=== PATIENT | male | born 1980 | race American Indian/Alaskan Native ===

== ENCOUNTER 2018-12-11 10:09 | Inpatient (IN) | payer OTHER ==
[2018-12-11] MEDS ORDERED: CATAPRES ONE (10:24)
[2018-12-11] MEDS ORDERED: CATAPRES PO ONE (10:24)
--- NOTE | 2018-12-11 13:16 | Emergency Department Report ---
HPI - General Chief Complaint: Upper Respiratory Infection Time Seen by Provider: 12/11/18 12:48 - HPI HPI: 37-year-old -[place] male presents to the emergency department with the complaint of a mixed dry and productive cough, chest congestion and some shortness of breath that has been going on for the past few weeks. He says that the symptoms worsen at night and when he is laying flat on his side. He then has to sit up in bed or in a chair. He tried one of his friends albuterol inhalers for some temporary relief. He is a tobacco smoker but says he is down to about a few cigarettes per week. He has a history of hypertension and admits to noncompliance with his blood pressure medication. He denies any fever, chest pain, nausea, vomiting or diaphoresis. No recent travel or sick contacts at home. He does not have a primary care physician. ED Past Medical Hx - Past Medical History Previous Medical History?: Yes Hx Hypertension: Yes - Surgical History Past Surgical History?: No - Social History Smoking Status: Current Some Day Smoker Substance Use Type: None - Medications Home Medications: Home Medications Medication Instructions Recorded Confirmed Last Taken Type No Known Home Medications [No 12/11/18 12/11/18 Unknown History Reported Home Medications] ED Review of Systems ROS: Stated complaint: SOB Other details as noted in HPI Comment: All other systems reviewed and negative Constitutional: denies: fever Eyes: denies: eye pain, vision change ENT: denies: ear pain, throat pain Respiratory: cough, shortness of breath Cardiovascular: denies: palpitations, edema Gastrointestinal: denies: abdominal pain, vomiting Genitourinary: denies: dysuria, discharge Musculoskeletal: denies: back pain, arthralgia Skin: denies: rash, lesions Neurological: denies: headache, weakness Physical Exam - Physical Exam Vital Signs: Vital Signs 12/11/18 12/11/18 12/11/18 10:19 10:24 12:13 Temperature 97.9 F Pulse Rate 102 H 102 H 95 H Respiratory 20 16 Rate Blood Pressure 215/155 214/155 Blood Pressure 160/120 [Right] O2 Sat by Pulse 98 98 Oximetry Physical Exam: GENERAL: The patient is well-developed well-nourished. HEENT: Normocephalic. Atraumatic. Patient has moist mucous membranes. EYES: Extraocular motions are intact. Pupils are equal and reactive to light bilaterally. NECK: Supple. Trachea is midline. CHEST/LUNGS: Clear to auscultation. There is some mild tachypnea but no excessive muscle use. There is no respiratory distress noted. HEART/CARDIOVASCULAR: Regular. There is mild tachycardia. There is no obvious murmur. ABDOMEN: Abdomen is soft, nontender. Patient has normal bowel sounds. There is no abdominal distention. SKIN: Skin is warm and dry. NEURO: The patient is awake, alert, and oriented. The patient is cooperative. The patient has no focal neurologic deficits. The patient has normal speech. MUSCULOSKELETAL: There is no tenderness or deformity. There is no limitation range of motion. There is no evidence of acute injury. ED Course Vital Signs 12/11/18 12/11/18 12/11/18 10:19 10:24 12:13 Temperature 97.9 F Pulse Rate 102 H 102 H 95 H Respiratory 20 16 Rate Blood Pressure 215/155 214/155 Blood Pressure 160/120 [Right] O2 Sat by Pulse 98 98 Oximetry ED Medical Decision Making - Lab Data Result diagrams: 12/11/18 13:37 12/11/18 13:37 - EKG Data -: EKG Interpreted by Me EKG shows normal: sinus rhythm, axis, intervals (slightly prolonged QTC), QRS complexes (LVH), ST-T waves (T-wave inversions to the lateral leads V5 and V6 with some slight ST depression but no reciprocal elevation.) Rate: tachycardia (102 bpm) - EKG Data When compared to previous EKG there are: previous EKG unavailable Interpretation: other (sinus tachycardia at 102 bpm, LVH, T-wave inversion and slight ST depression to lateral leads V5 and V6) - Radiology Data Radiology results: report reviewed, image reviewed interpreted by me: Chest x-ray shows some cardiomegaly but no obvious pleural effusions, pneumonia, focal consolidations. VENTILATION/PERFUSION LUNG SCAN: 12/11/18 15:11 CLINICAL: Shortness of breath and elevated d-dimer. TECHNIQUE: 15.0 mCi of xenon-133 was administered by aerosol and 5.0 mCi of technetium 99m MAA was administered intravenously. Comparison is made to a same day chest x-ray. FINDINGS: Inhalation of Xenon gas demonstrates a normal distribution of the activity throughout both lungs. The wash out phases show no significant retention of activity. After injection of Technetium 99m macroaggregated albumin gamma camera imaging of the lungs in multiple projections demonstrates normal pulmonary contours with a relatively homogeneous distribution of activity. No suspicious focal areas of perfusion deficiency are identified. IMPRESSION: Negative study. Low probability of pulmonary embolus. Transcribed By: REF Dictated By: LUISA CEVALLOS MD Electronically Authenticated By: LUISA CEVALLOS MD Signed Date/Time: 12/11/18 9621 - Medical Decision Making Patient presents to the emergency department with a complaint of shortness of breath, orthopnea. He also presents with very elevated blood pressure with medication noncompliance. EKG did not show any signs of ST elevation [place] but there are some ST depressions and T-wave inversions to the lateral leads of V5 and V6 with some LVH. Chest x-ray shows cardiomegaly but no pleural effusions, pneumothorax, pneumonia, focal consolidations, or any other acute process. Patient's labs show a creatinine of 2.2 with GFR 40, BNP of almost 19,000, slightly elevated and equivocal troponin, and elevated and equivocal d-dimer. VQ scan was negative for pulmonary embolism. Patient was given blood pressure medications and a dose of Lasix. He will be admitted to the hospital for his hypertensive issues, acute kidney failure and what appears to be acute CHF. Patient was accepted for admission by the hospitalist, Dr. Cornejo. - Differential Diagnosis CHF, Pneumonia, Asthma, PE, [place] Critical Care Time: No Critical care attestation.: If time is entered above; I have spent that time in minutes in the direct care of this critically ill patient, excluding procedure time. ED Disposition Clinical Impression: Accelerated hypertension Dyspnea Qualifiers: Dyspnea type: shortness of breath Qualified Code(s): R06.02 - Shortness of breath Acute CHF Qualifiers: Heart failure type: unspecified Qualified Code(s): I50.9 - Heart failure, unspecified Acute renal failure Qualifiers: Acute renal failure type: unspecified Qualified Code(s): N17.9 - Acute kidney failure, unspecified Disposition: OP ADMIT IP TO THIS HOSP Is pt being admited?: Yes Condition: Fair Instructions: Hypertension (ED) Referrals: LYN LUCERO MD [Primary Care Provider] - 3-5 Days Time of Disposition: 15:50
--- NOTE | 2018-12-11 13:27 | XRay Report ---
ROUTINE CHEST, TWO VIEWS: HISTORY: chest pain. No comparison. Heart size appears borderline to mildly increased. Normal pulmonary vascularity. The lungs are clear. Normal bony thorax. IMPRESSION: Borderline heart size. Lungs clear.
[2018-12-11 14:08] LABS: Basophils % (Auto) 0.8 % (0.0-1.8); Eosinophils # (Auto) 0.1 K/mm3 (0.0-0.4); Eosinophils % (Auto) 1.1 % (0.0-4.3); Hematocrit 38.4 % (35.5-45.6); Hemoglobin 12.9 gm/dl (11.8-15.2); Lymphocytes # (Auto) 1.3 K/mm3 (1.2-5.4); Lymphocytes % (Auto) 26.2 % (13.4-35.0); Mean Corpuscular HGB Conc 34 % (32-34); Mean Corpuscular Volume 92 fl (84-94); Monocytes # (Auto) 0.3 K/mm3 (0.0-0.8); Monocytes % (Auto) 5.8 % (0.0-7.3); Platelet Count 179 K/mm3 (140-440); Red Cell Distribution Width 14.5 % (13.2-15.2)
[2018-12-11 14:35] LABS: Calcium 8.4 mg/dL (8.4-10.2)
[2018-12-11] MEDS ORDERED: DUONEB *Not for PRN Use IH ONE (14:39)
[2018-12-11] MEDS ORDERED: LASIX IV ONE (14:39)
[2018-12-11] MEDS ORDERED: APRESOLINE IV ONE (14:39)
--- NOTE | 2018-12-11 15:40 | Nuclear Medicine Report ---
VENTILATION/PERFUSION LUNG SCAN: 12/11/18 15:11 CLINICAL: Shortness of breath and elevated d-dimer. TECHNIQUE: 15.0 mCi of xenon-133 was administered by aerosol and 5.0 mCi of technetium 99m MAA was administered intravenously. Comparison is made to a same day chest x-ray. FINDINGS: Inhalation of Xenon gas demonstrates a normal distribution of the activity throughout both lungs. The wash out phases show no significant retention of activity. After injection of Technetium 99m macroaggregated albumin gamma camera imaging of the lungs in multiple projections demonstrates normal pulmonary contours with a relatively homogeneous distribution of activity. No suspicious focal areas of perfusion deficiency are identified. IMPRESSION: Negative study. Low probability of pulmonary embolus.
[2018-12-12] MEDS ORDERED: TYLENOL PO PRN (01:24)
[2018-12-12] MEDS ORDERED: ZOFRAN IV PRN (01:24)
[2018-12-12] MEDS ORDERED: PERCOCET 5/325 PO PRN (01:24)
[2018-12-12] MEDS ORDERED: SODIUM CHLORIDE FLUSH SYRINGE 10 ML IV PRN (01:24)
[2018-12-12] MEDS ORDERED: DILAUDID IV PRN (01:24)
[2018-12-12] MEDS: NITRO-BID 2% TP SCH ×5 (01:35→17:22)
[2018-12-12] MEDS: COZAAR PO SCH ×2 (01:39→10:46)
[2018-12-12] MEDS: K-DUR PO SCH ×3 (01:39→22:02)
[2018-12-12] MEDS: COREG PO SCH ×3 (01:40→22:02)
[2018-12-12] MEDS: NORVASC PO SCH ×2 (01:40→10:39)
--- NOTE | 2018-12-12 01:48 | Event Note ---
Date: 12/11/18 See dictated H/p in reports New onset CHF Hypertensive emergency OBIE/CKD
[2018-12-12] MEDS: HEPARIN SUB-Q SCH ×3 (02:19→22:03)
--- NOTE | 2018-12-12 02:24 | History and Physical Report ---
CHIEF COMPLAINT: Increasing shortness of breath for 1 month. HISTORY OF PRESENT ILLNESS: This 37-year-old male with history of hypertension, noncompliant with medications and not taking medications for 1 year, comes in for intermittent shortness of breath for the last 1 month, more so for 1 week. Shortness of breath on minimal exertion. Also orthopnea present for the last 2-3 days. No chest pain present. The patient has shortness of breath on walking like 100-150 meters. This is new onset over the last 1 month. No diaphoresis. No palpitations. No recent travel. PAST MEDICAL HISTORY: Significant for hypertension, but noncompliant with medications. PAST SURGICAL HISTORY: None. SOCIAL HISTORY: Smokes over a pack a day. FAMILY HISTORY: Hypertension. REVIEW OF SYSTEMS: Significant for shortness of breath on minimal exertion and orthopnea present, going on for 1 month. Otherwise, review of systems is negative. A 14-point review of systems is done. PHYSICAL EXAMINATION: GENERAL: Young male, cooperative during the examination. VITAL SIGNS: Blood pressure was initially 173/132, temperature is 97.6, pulse is 95, respirations are 15. HEENT: Unremarkable. NECK: Supple, no lymphadenopathy, no thyromegaly. LUNGS: Scattered rales bilaterally. CARDIOVASCULAR: S1, S2 heard. No gallop, no murmur, no rub. Apical impulse in left fifth intercostal space and midclavicular line. ABDOMEN: Soft and benign. No hepatosplenomegaly. No guarding, no rigidity. Hernial orifices are normal. EXTREMITIES: Good pedal pulses. No pedal edema. CENTRAL NERVOUS SYSTEM: Alert and oriented x 4, nonfocal exam. LABORATORY DATA: CBC is normal. D-dimer is 624.94, BUN and creatinine is 25 and 2.2. BNP is 18,340. Calcium is 8.4, glucose is 128. EKG shows LVH by voltage criteria. Heart rate of 102, sinus tachycardia. Deep S waves in V1, V2, V3, and tall R waves in V4, V5, V6. Repolarization abnormalities present. Chest x-ray shows cardiomegaly, but no pulmonary vascular congestion. ASSESSMENT AND PLAN: 1. New onset congestive heart failure exacerbation. The patient to get echocardiogram for ejection fraction and valve funstion. IV Lasix initiated. Also, antihypertensives initiated. 2. Hypertensive emergency. The patient initiated on losartan 100 mg once a day and Coreg 6.25 b.i.d. and amlodipine 5 mg daily. Also, hydralazine 10 mg q.3 p.r.n. 3. Acute kidney injury. The patient possibly has chronic kidney disease with mild acute kidney injury. The patient is on Lasix. Nephrology consult to be requested if necessary. At this point, nephrology consult was not ordered. 4. Deep venous thrombosis prophylaxis, heparin 5000 q.12. 5. Gastrointestinal prophylaxis. JOB# [id number] SCOTT/MAIDA TELLEZ
[2018-12-12] MEDS: LASIX IV SCH ×2 (05:36→17:21)
[2018-12-12 06:32] LABS: Albumin 3.1 g/dL (3.9-5); Calcium 8.3 mg/dL (8.4-10.2)
[2018-12-12 08:23] LABS: Chol/HDL Ratio 2.62 %
[2018-12-12] MEDS: KCL 10MEQ/100ML 10 MEQ/100 ML BAG IV SCH ×3 (10:39→14:24)
[2018-12-12] MEDS: SODIUM CHLORIDE FLUSH SYRINGE 10 ML IV SCH ×3 (10:42→22:05)
--- NOTE | 2018-12-12 10:52 | Consultation ---
History of Present Illness - Reason for Consult Consult date: 12/12/18 acute renal failure, hypokalemia Requesting physician: YENI LACY - History of Present Illness This is a 37 yo AAM with past medical history of hypertension diagnosed more than 5-6 years ago, who presented to [facility] ER with complaints of SOB, LANTIGUA, orthopnea progressively worsening over the last 1 week, to the degree that pt was not able to walk more than 100meter without stopping to catch air. pt states that he was not compliant with medical follow up and with BP meds for the last year. in ER patient was found to be in hypertensive emergency with BP as high as 215/150s mmHg, labs showed elevated D-dimer >600 and proBNP level > 03953, CXR showed mild cardiomegaly but no acute infiltrates, V/Q scan showed low probability for PE. BUN/Cr was elevated at 25/2.2mg/dl and hypokalemia was noted with K as low as 2.9. renal consult is requested for management of OBIE/electrolyte imbalance. Pt's BP improved with IV hydralazine, IV lasix, and nitro ointment. pt denies recent NSAIDs use or IV contrast exposure. pt is not aware of any underlying renal disease. Past History Past Medical History: hypertension Past Surgical History: No surgical history Social history: smoking. denies: alcohol abuse, prescription drug abuse, IV drug use Family history: hypertension (kidney failure - mother () ) Medications and Allergies Allergies Allergy/AdvReac Type Severity Reaction Status Date / Time No Known Allergies Allergy Verified 12/11/18 10:55 Home Medications Medication Instructions Recorded Confirmed Last Taken Type No Known Home Medications [No 12/11/18 12/11/18 Unknown History Reported Home Medications] Active Meds: Active Medications Acetaminophen (Tylenol) 650 mg PO Q4H PRN PRN Reason: Pain MILD(1-3)/Fever >100.5/TUCKER Amlodipine Besylate (Norvasc) 5 mg PO QDAY@0800 [facility] Last Admin: 12/12/18 10:39 Dose: 5 mg Documented by: Carvedilol (Coreg) 6.25 mg PO BID [facility] Last Admin: 12/12/18 10:40 Dose: 6.25 mg Documented by: Furosemide (Lasix) 40 mg IV 0600,1800 [facility] Last Admin: 12/12/18 05:36 Dose: 40 mg Documented by: Heparin Sodium (Porcine) (Heparin) 5,000 unit SUB-Q Q12HR [facility] Last Admin: 12/12/18 02:19 Dose: Not Given Documented by: Hydromorphone HCl (Dilaudid) 0.5 mg IV Q3H PRN PRN Reason: Pain , Severe (7-10) Potassium Chloride (Kcl 10meq/100ml) 10 meq in 100 mls @ 100 mls/hr IV Q1H [facility] Stop: 12/12/18 12:59 Last Admin: 12/12/18 10:39 Dose: 100 mls/hr Documented by: Losartan Potassium (Cozaar) 100 mg PO QDAY [facility] Last Admin: 12/12/18 10:46 Dose: 100 mg Documented by: Nitroglycerin (Nitro-Bid 2%) 0.5 inch TP QIDNTG [facility]; Protocol Last Admin: 12/12/18 10:40 Dose: 0.5 inch Documented by: Ondansetron HCl (Zofran) 4 mg IV Q8H PRN PRN Reason: Nausea And Vomiting Oxycodone/Acetaminophen (Percocet 5/325) 1 tab PO Q6H PRN PRN Reason: Pain, Moderate (4-6) Potassium Chloride (K-Dur) 20 meq PO Q12HR [facility] Last Admin: 12/12/18 10:47 Dose: 20 meq Documented by: Sodium Chloride (Sodium Chloride Flush Syringe 10 Ml) 10 ml IV BID [facility] Last Admin: 12/12/18 10:42 Dose: 10 ml Documented by: Sodium Chloride (Sodium Chloride Flush Syringe 10 Ml) 10 ml IV PRN PRN PRN Reason: LINE FLUSH Review of Systems All systems: negative Constitutional: weakness, malaise Cardiovascular: chest pain, orthopnea, shortness of breath, dyspnea on exertion, paroxysmal nocturnal dyspnea Exam - Vital Signs Vital signs: Vital Signs Temp Pulse Resp BP Pulse Ox 97.9 F 102 H 20 215/155 98 12/11/18 10:19 12/11/18 10:19 12/11/18 10:19 12/11/18 10:19 12/11/18 10:19 - General Appearance General appearance: well-developed, well-nourished, appears stated age EENT: ATNC, PERRL, mucous membranes moist Neck: Present: neck supple Respiratory: Decreased Breath Sounds Heart: regular, S1S2 Gastrointestinal: Present: normoactive bowel sounds Integumentary: no rash, other (no edema ) Neurologic: no focal deficit, alert and oriented x3, strength 5/5, CN 3-12 intact Psychiatric: mood/affect appropriate, cooperative Results - Lab Results 12/11/18 13:37 12/12/18 04:46 Most recent lab results Calcium 8.3 mg/dL (8.4-10.2) L 12/12/18 04:46 Laboratory Tests 12/11/18 12/11/18 12/12/18 13:37 13:37 04:46 D-Dimer 624.94 H Calcium 8.3 L Total Bilirubin 0.60 AST 21 ALT 32 Alkaline Phosphatase 63 Troponin T 0.022 NT-Pro-B Natriuret Pep 28989 H Total Protein 5.2 L Albumin 3.1 L Albumin/Globulin Ratio 1.5 Triglycerides Cholesterol LDL Cholesterol Direct HDL Cholesterol Cholesterol/HDL Ratio 12/12/18 12/12/18 04:46 09:44 D-Dimer Calcium Total Bilirubin AST ALT Alkaline Phosphatase Troponin T 0.030 H D 0.021 NT-Pro-B Natriuret Pep Total Protein Albumin Albumin/Globulin Ratio Triglycerides 65 Cholesterol 168 LDL Cholesterol Direct 110 HDL Cholesterol 64 H Cholesterol/HDL Ratio 2.62 Assessment and Plan - Patient Problems (1) Acute renal failure Current Visit: Yes Status: Acute Qualifiers: Acute renal failure type: unspecified Qualified Code(s): N17.9 - Acute kidney failure, unspecified Plan to address problem: 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 underlying CKD secondary to hypertensive nephrosclerosis possible. check UA, urine lytes, urine P/C ratio. obtain renal US. cont BP control with Losartan, amlodipine, carvedilol, BP at target. avoid nephrotoxins, NSAIDs, IV contrast. Will montor lytes/renal parameters closely and make further recommendations. (2) Hypertensive emergency Current Visit: Yes Status: Acute Plan to address problem: BP improved s/p IV hydralazine, IV lasix. cont BP control with Losartan, amlodipine, carvedilol, BP at target (3) Hypokalemia Current Visit: Yes Status: Acute Plan to address problem: K Supplementation with KDur, if K remains low despite being on losartan/s/p K supplementation will consider spironolactone
[2018-12-12] MEDS ORDERED: ALDACTONE PO SCH (11:00)
--- NOTE | 2018-12-12 11:29 | Progress Note ---
Assessment and Plan Assessment and plan: Acute CHF Echo to determine EF lasix iv bid cardiology following OBIE Nephrology consulted Renal US Repeat BMP in am hypertension Monitor BP Elevated troponin hypokalamia. Replace and recheck History Interval history: Shortness of breath difficulty lying flat Hospitalist Physical - Physical exam Narrative exam: Gen: Not in acute distress, lying in bed HEENT: Normocephalic, atraumatic Neck: supple, no JVD Heart: S1 and S2 reg, no murmurs, rubs or gallop Lungs: Clear, no crackles Abd: soft, non tender, non distended, normal BS Ext: No edema, no clubbing, no cyanosis, Neuro: AAO x 3, no focal signs, moves all ext Psych:Normal mood - Constitutional Vitals: Temp Pulse Resp BP Pulse Ox 98.3 F 80 24 120/78 96 12/12/18 07:32 12/12/18 10:46 12/12/18 07:32 12/12/18 10:46 12/12/18 07:32 Results - Labs CBC & Chem 7: 12/11/18 13:37 12/12/18 04:46 Labs: Laboratory Last Values WBC 5.0 K/mm3 (4.5-11.0) 12/11/18 13:37 RBC 4.20 M/mm3 (3.65-5.03) 12/11/18 13:37 Hgb 12.9 gm/dl (11.8-15.2) 12/11/18 13:37 Hct 38.4 % (35.5-45.6) 12/11/18 13:37 MCV 92 fl (84-94) 12/11/18 13:37 MCH 31 pg (28-32) 12/11/18 13:37 MCHC 34 % (32-34) 12/11/18 13:37 RDW 14.5 % (13.2-15.2) 12/11/18 13:37 Plt Count 179 K/mm3 (140-440) 12/11/18 13:37 Lymph % (Auto) 26.2 % (13.4-35.0) 12/11/18 13:37 Drew % (Auto) 5.8 % (0.0-7.3) 12/11/18 13:37 Eos % (Auto) 1.1 % (0.0-4.3) 12/11/18 13:37 Baso % (Auto) 0.8 % (0.0-1.8) 12/11/18 13:37 Lymph # 1.3 K/mm3 (1.2-5.4) 12/11/18 13:37 Drew # 0.3 K/mm3 (0.0-0.8) 12/11/18 13:37 Eos # 0.1 K/mm3 (0.0-0.4) 12/11/18 13:37 Baso # 0.0 K/mm3 (0.0-0.1) 12/11/18 13:37 Seg Neutrophils % 66.1 % (40.0-70.0) 12/11/18 13:37 Seg Neutrophils # 3.3 K/mm3 (1.8-7.7) 12/11/18 13:37 D-Dimer 624.94 ng/mlDDU (0-234) H 12/11/18 13:37 Sodium 142 mmol/L (137-145) 12/12/18 04:46 Potassium 2.9 mmol/L (3.6-5.0) L* D 12/12/18 04:46 Chloride 103.8 mmol/L (98-107) 12/12/18 04:46 Carbon Dioxide 27 mmol/L (22-30) 12/12/18 04:46 Anion Gap 14 mmol/L 12/12/18 04:46 BUN 22 mg/dL (9-20) H 12/12/18 04:46 Creatinine 2.0 mg/dL (0.8-1.5) H 12/12/18 04:46 Estimated GFR 46 ml/min 12/12/18 04:46 BUN/Creatinine Ratio 11 % 12/12/18 04:46 Glucose 97 mg/dL (75-100) 12/12/18 04:46 Hemoglobin A1c 5.1 % (4-6) 12/12/18 04:46 Calcium 8.3 mg/dL (8.4-10.2) L 12/12/18 04:46 Total Bilirubin 0.60 mg/dL (0.1-1.2) 12/12/18 04:46 AST 21 units/L (5-40) 12/12/18 04:46 ALT 32 units/L (7-56) 12/12/18 04:46 Alkaline Phosphatase 63 units/L (35-129) 12/12/18 04:46 Troponin T 0.021 ng/mL (0.00-0.029) 12/12/18 09:44 NT-Pro-B Natriuret Pep 80367 pg/mL (0-450) H 12/11/18 13:37 Total Protein 5.2 g/dL (6.3-8.2) L 12/12/18 04:46 Albumin 3.1 g/dL (3.9-5) L 12/12/18 04:46 Albumin/Globulin Ratio 1.5 % 12/12/18 04:46 Triglycerides 65 mg/dL (2-149) 12/12/18 04:46 Cholesterol 168 mg/dL (50-199) 12/12/18 04:46 LDL Cholesterol Direct 110 mg/dL (50-130) 12/12/18 04:46 HDL Cholesterol 64 mg/dL (40-59) H 12/12/18 04:46 Cholesterol/HDL Ratio 2.62 % 12/12/18 04:46 Active Medications - Current Medications Current Medications: Generic Name Dose Route Start Last Admin Trade Name Freq PRN Reason Stop Dose Admin Acetaminophen 650 mg 12/12/18 01:24 Tylenol PO Q4H PRN Pain MILD(1-3)/Fever >100.5/TUCKER Amlodipine Besylate 5 mg 12/12/18 01:30 12/12/18 10:39 Norvasc PO 5 mg QDAY@0800 [facility] Administration Carvedilol 6.25 mg 12/12/18 02:00 12/12/18 10:40 Coreg PO 6.25 mg BID [facility] Administration Furosemide 40 mg 12/12/18 06:00 12/12/18 05:36 Lasix IV 12/13/18 10:00 40 mg 0600,1800 [facility] Administration Heparin Sodium (Porcine) 5,000 unit 12/12/18 02:00 12/12/18 10:47 Heparin SUB-Q 5,000 unit Q12HR [facility] Administration Hydromorphone HCl 0.5 mg 12/12/18 01:24 Dilaudid IV Q3H PRN Pain , Severe (7-10) Potassium Chloride 10 meq in 100 mls @ 100 mls/hr 12/12/18 10:00 12/12/18 10:39 Kcl 10meq/100ml IV 12/12/18 12:59 100 mls/hr Q1H [facility] Administration Losartan Potassium 100 mg 12/12/18 01:29 12/12/18 10:46 Cozaar PO 100 mg QDAY [facility] Administration Nitroglycerin 0.5 inch 12/12/18 00:00 12/12/18 10:40 Nitro-Bid 2% TP 0.5 inch QIDNTG [facility] Administration Protocol Ondansetron HCl 4 mg 12/12/18 01:24 Zofran IV Q8H PRN Nausea And Vomiting Oxycodone/Acetaminophen 1 tab 12/12/18 01:24 Percocet 5/325 PO Q6H PRN Pain, Moderate (4-6) Potassium Chloride 20 meq 12/12/18 02:00 12/12/18 10:47 K-Dur PO 20 meq Q12HR [facility] Administration Sodium Chloride 10 ml 12/12/18 10:00 12/12/18 10:42 Sodium Chloride Flush Syringe 10 Ml IV 10 ml BID [facility] Administration Sodium Chloride 10 ml 12/12/18 01:24 Sodium Chloride Flush Syringe 10 Ml IV PRN PRN LINE FLUSH
--- NOTE | 2018-12-12 14:03 | Consultation ---
History of Present Illness Consult date: 12/12/18 Requesting physician: YENI LACY Consult reason: congestive heart failure History of present illness: The pt is a 37 YO male with a past medical history significant for HTN diagnosed 6 years ago, tobacco use and medical noncompliance. He is previously unknown to our practice. He presented with complaints of progressively worsening SOB, LANTIGUA, PND and orthopnea for the past several weeks. He denies any chest pain, palpitations, n/v, diaphoresis, dizziness or syncope. He admits that he was diagnosed with HTN 6 years ago and was was compliant with lisinopril for about 3 years but discontinued that medication and stopped seeing doctors because he felt okay. Past History Past Medical History: hypertension Past Surgical History: No surgical history Social history: smoking. denies: alcohol abuse, prescription drug abuse, IV drug use Family history: hypertension (kidney failure - mother () ) Medications and Allergies Allergies Allergy/AdvReac Type Severity Reaction Status Date / Time No Known Allergies Allergy Verified 12/11/18 10:55 Home Medications Medication Instructions Recorded Confirmed Last Taken Type No Known Home Medications [No 12/11/18 12/11/18 Unknown History Reported Home Medications] Active Meds: Active Medications Acetaminophen (Tylenol) 650 mg PO Q4H PRN PRN Reason: Pain MILD(1-3)/Fever >100.5/TUCKER Amlodipine Besylate (Norvasc) 5 mg PO QDAY@0800 ON LICENSE OF [facility] Last Admin: 12/12/18 10:39 Dose: 5 mg Documented by: Carvedilol (Coreg) 6.25 mg PO BID ON LICENSE OF [facility] Last Admin: 12/12/18 10:40 Dose: 6.25 mg Documented by: Furosemide (Lasix) 40 mg IV 0600,1800 ON LICENSE OF [facility] Stop: 12/13/18 10:00 Last Admin: 12/12/18 05:36 Dose: 40 mg Documented by: Heparin Sodium (Porcine) (Heparin) 5,000 unit SUB-Q Q12HR ON LICENSE OF [facility] Last Admin: 12/12/18 10:47 Dose: 5,000 unit Documented by: Hydromorphone HCl (Dilaudid) 0.5 mg IV Q3H PRN PRN Reason: Pain , Severe (7-10) Losartan Potassium (Cozaar) 100 mg PO QDAY ON LICENSE OF [facility] Last Admin: 12/12/18 10:46 Dose: 100 mg Documented by: Nitroglycerin (Nitro-Bid 2%) 0.5 inch TP QIDNTG ON LICENSE OF [facility]; Protocol Last Admin: 12/12/18 10:40 Dose: 0.5 inch Documented by: Ondansetron HCl (Zofran) 4 mg IV Q8H PRN PRN Reason: Nausea And Vomiting Oxycodone/Acetaminophen (Percocet 5/325) 1 tab PO Q6H PRN PRN Reason: Pain, Moderate (4-6) Potassium Chloride (K-Dur) 20 meq PO Q12HR ON LICENSE OF [facility] Last Admin: 12/12/18 10:47 Dose: 20 meq Documented by: Sodium Chloride (Sodium Chloride Flush Syringe 10 Ml) 10 ml IV BID ON LICENSE OF [facility] Last Admin: 12/12/18 12:47 Dose: 10 ml Documented by: Sodium Chloride (Sodium Chloride Flush Syringe 10 Ml) 10 ml IV PRN PRN PRN Reason: LINE FLUSH Review of Systems Constitutional: no weight loss, no weight gain, no fever, no chills, no sweats Ears, nose, mouth and throat: no ear pain, no nose pain, no sinus pressure, no sinus pain Cardiovascular: orthopnea, shortness of breath, dyspnea on exertion, paroxysmal nocturnal dyspnea, high blood pressure, decreased exercise tolerance, no chest pain, no palpitations, no rapid/irregular heart beat, no edema, no syncope, no lightheadedness, no leg edema Respiratory: shortness of breath, dyspnea on exertion, no cough, no congestion, no wheezing, no pain on inspiration Gastrointestinal: no abdominal pain, no nausea, no vomiting, no diarrhea, no constipation, no change in bowel habits Genitourinary Male: no dysuria, no hematuria, no flank pain, no urinary frequency, no urinary hesitancy Musculoskeletal: no neck stiffness, no neck pain, no shooting arm pain, no arm numbness/tingling, no low back pain, no shooting leg pain Integumentary: no rash, no pruritis, no redness, no sores, no wounds Neurological: no head injury, no paralysis, no weakness, no parathesias, no numbness, no tingling, no seizures, no syncope Psychiatric: no anxiety Endocrine: no cold intolerance, no heat intolerance Hematologic/Lymphatic: no easy bruising, no easy bleeding Allergic/Immunologic: no urticaria, no wheezing Physical Examination Vital Signs Temp Pulse Resp BP Pulse Ox 97.9 F 102 H 20 215/155 98 12/11/18 10:19 12/11/18 10:19 12/11/18 10:19 12/11/18 10:12/11/18 10:19 General appearance: no acute distress HEENT: Positive: PERRL, Normocephaly, Mucus Membranes Moist Neck: Positive: neck supple, trachea midline Cardiac: Positive: Reg Rate and Rhythm, S1/S2 Lungs: Positive: Decreased Breath Sounds Neuro: Positive: Grossly Intact Abdomen: Positive: Soft. Negative: Tender Skin: Negative: Rash, Wound Musculoskeletal: No Pain Extremities: Absent: edema Results 12/11/18 13:37 12/12/18 04:46 Cardiac Enzymes 12/12/18 Range/Units 04:46 AST 21 (5-40) units/L Lipids 12/12/18 Range/Units 04:46 Triglycerides 65 (2-149) mg/dL Cholesterol 168 (50-199) mg/dL HDL Cholesterol 64 H (40-59) mg/dL Cholesterol/HDL Ratio 2.62 % CBC 12/11/18 Range/Units 13:37 WBC 5.0 (4.5-11.0) K/mm3 RBC 4.20 (3.65-5.03) M/mm3 Hgb 12.9 (11.8-15.2) gm/dl Hct 38.4 (35.5-45.6) % Plt Count 179 (140-440) K/mm3 Lymph # 1.3 (1.2-5.4) K/mm3 [place] # 0.3 (0.0-0.8) K/mm3 Eos # 0.1 (0.0-0.4) K/mm3 Baso # 0.0 (0.0-0.1) K/mm3 Comprehensive Metabolic Panel 12/11/18 12/12/18 Range/Units 13:37 04:46 Sodium 144 142 (137-145) mmol/L Potassium 3.7 2.9 L* D (3.6-5.0) mmol/L Chloride 105.1 103.8 (98-107) mmol/L Carbon Dioxide 31 H 27 (22-30) mmol/L BUN 25 H 22 H (9-20) mg/dL Creatinine 2.2 H 2.0 H (0.8-1.5) mg/dL Glucose 128 H 97 (75-100) mg/dL Calcium 8.4 8.3 L (8.4-10.2) mg/dL AST 21 (5-40) units/L ALT 32 (7-56) units/L Alkaline Phosphatase 63 (35-129) units/L Total Protein 5.2 L (6.3-8.2) g/dL Albumin 3.1 L (3.9-5) g/dL - Imaging and Cardiology Echo: pending EKG: report reviewed, image reviewed EKG interpretations - Telemetry EKG Rhythm: Sinus Rhythm - EKG Sinus rhythms and dysrhythmias: sinus rhythm Chamber hypertrophy or enlargement: left ventricular hypertro Repolarization changes or abnormalities: repolarization abn secondary to ventricular hypertrophy Assessment and Plan Acute heart failure Agree with present management, including IV lasix BID, coreg, losartan. Obtain echo. Acute renal failure Nephrology following. Uncontrolled HTN Improving. Cont present management. Minimally elevated troponin Pt denies chest pain. ECG with no acute ischemic changes. Currently nonspecific. Obtain echo. Hypokalemia Replete K+ and check serum Mg. Repeat BMP in AM. Elevated DDimer V/Q scan negative for PE. Tobacco use Cessation encouraged. Medical noncompliance The patient has been seen in conjunction with Dr. Ruffin who agrees with the assessment and plan of care.
--- NOTE | 2018-12-12 14:20 | Ultrasound Report ---
ULTRASOUND RENAL BILATERAL HISTORY: Acute kidney injury. TECHNIQUE: transabdominal ultrasound with color Doppler interrogation. COMPARISON: none. FINDINGS: The right kidney measures 9.9 x 4.5 x 5.7cm. Right renal cortex: 1.3cm. The left kidney measures 9.8 x 4.6 x 4.8cm. Left renal cortex: 1.8cm. The kidneys are normal size, contour and position. There is increased renal cortical echotexture bilaterally consistent with nonspecific renal parenchymal disease. Corticomedullary differentiation is preserved. No evidence for cystic disease, mass, nephrolithiasis, hydronephrosis or perinephric fluid. The views of the bladder and the region of the ureters appear normal. IMPRESSION: Renal parenchymal disease.
[2018-12-12 16:15] LABS: Bilirubin,Urine NEG (Negative); Blood,Urine NEG (Negative); Color,Urine Yellow (Yellow); WBC,Urine < 1.0 /HPF (0.0-6.0)
[2018-12-12 16:29] LABS: Creatinine,Urine 214.6 mg/dL (0.1-20.0)
[2018-12-13] MEDS: NITRO-BID 2% TP SCH ×3 (05:38→17:45)
[2018-12-13] MEDS: LASIX IV SCH (05:38)
[2018-12-13 06:28] LABS: Calcium 8.5 mg/dL (8.4-10.2)
--- NOTE | 2018-12-13 11:05 | Progress Note ---
Assessment and Plan Acute heart failure with reduced EF Preliminary review of echo shows EF ~20-25%. Pt appears euvolemic. IV lasix d/c'd. Optimize BPs - increase coreg, hold ACEI/ARB in setting of renal insufficiency, cont norvasc. Plan for lexiscan MPI stress test to r/o ischemic CMP in AM. NPO after MN. Cardiomyopathy Cont Coreg. No ACEI/ARB in setting of renal insufficiency. Plan for lexiscan MPI stress test to r/o ischemic CMP in AM. NPO after MN. Acute renal failure Nephrology following. Uncontrolled HTN Improving. Optimize BPs - increase coreg, hold ACEI/ARB in setting of renal insufficiency, cont norvasc. Consider increasing norvasc if necessary. Minimally elevated troponin Pt denies chest pain. ECG with no acute ischemic changes. Currently nonspecific. Hypokalemia Replete lytes PRN. Elevated DDimer V/Q scan negative for PE. Tobacco use Cessation encouraged. Medical noncompliance The patient has been seen in conjunction with Dr. Ruffin who agrees with the assessment and plan of care. Subjective Date of service: 12/13/18 Principal diagnosis: ARF; HTN; HF Interval history: pt seen in echo lab, no current complaints, states he is feeling better. Objective Last Vital Signs Temp 98.8 F 12/13/18 08:12 Pulse 93 H 12/13/18 08:12 Resp 20 12/13/18 08:12 BP 146/111 12/13/18 08:12 Pulse Ox 96 12/13/18 08:12 - Physical Examination General: No Apparent Distress HEENT: Positive: PERRL, Normocephaly, Mucus Membranes Moist Neck: Positive: neck supple, trachea midline Cardiac: Positive: Reg Rate and Rhythm, S1/S2 Lungs: Positive: Decreased Breath Sounds Neuro: Positive: Grossly Intact Abdomen: Positive: Soft. Negative: Tender Skin: Negative: Rash, Wound Musculoskeletal: No Pain Extremities: Absent: edema - Labs and Meds Comprehensive Metabolic Panel 12/13/18 Range/Units 04:40 Sodium 141 (137-145) mmol/L Potassium 3.2 L (3.6-5.0) mmol/L Chloride 102.7 (98-107) mmol/L Carbon Dioxide 24 (22-30) mmol/L BUN 27 H (9-20) mg/dL Creatinine 2.4 H (0.8-1.5) mg/dL Glucose 95 (75-100) mg/dL Calcium 8.5 (8.4-10.2) mg/dL - Imaging and Cardiology EKG: report reviewed, image reviewed Echo: pending - EKG Sinus rhythms and dysrhythmias: sinus rhythm Chamber hypertrophy or enlargement: left ventricular hypertro Repolarization changes or abnormalities: repolarization abn secondary to ventricular hypertrophy
[2018-12-13] MEDS: K-DUR PO SCH (11:20)
[2018-12-13] MEDS: COZAAR PO SCH (11:20)
[2018-12-13] MEDS: NORVASC PO SCH (11:25)
[2018-12-13] MEDS: HEPARIN SUB-Q SCH ×2 (11:26→21:15)
--- NOTE | 2018-12-13 12:54 | Progress Note ---
Assessment and Plan - Patient Problems (1) Acute renal failure Current Visit: Yes Status: Acute Qualifiers: Acute renal failure type: unspecified Qualified Code(s): N17.9 - Acute kidney failure, unspecified Plan to address problem: 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 underlying CKD secondary to hypertensive nephrosclerosis possible. check UA, urine lytes, urine P/C ratio. renal US showed b/l echogenic kidneys consistent with CKD. avoid nephrotoxins, NSAIDs, IV contrast. Recommend to cont ARB w/ losartan and spironolactone given preliminary review of echo shows EF ~20-25%. (2) Hypertensive emergency Current Visit: Yes Status: Acute Plan to address problem: Pt is euvolemic agree with d/c IV lasix. cont BP control with Losartan, amlodipine, carvedilol, added spironolactone (3) Hypokalemia Current Visit: Yes Status: Acute Plan to address problem: K Supplementation with KDur, cont losartan, added spironolactone Subjective Date of service: 12/13/18 Principal diagnosis: ARF; HTN; HF Interval history: Pt awake, alert, in no acute respiratory distress. Objective - Vital Signs Vital signs: Vital Signs - 12hr 12/13/18 12/13/18 03:58 08:12 Temperature 98.3 F 98.8 F Pulse Rate 84 93 H Respiratory 14 20 Rate Blood Pressure 140/99 146/111 O2 Sat by Pulse 96 96 Oximetry - General Appearance General appearance: well-developed, well-nourished, appears stated age EENT: ATNC, PERRL, mucous membranes moist Neck: no JVD Respiratory: Present: Clear to Ascultation Cardiology: regular, S1S2 Gastrointestinal: normoactive bowel sounds Integumentary: no rash, other (no edema ) Neurologic: no focal deficit, alert and oriented x3, strength 5/5, CN 3-12 intact Psychiatric: mood/affect appropriate, cooperative - Lab 12/11/18 13:37 12/13/18 04:40 Most recent lab results Calcium 8.5 mg/dL (8.4-10.2) 12/13/18 04:40 Magnesium 1.80 mg/dL (1.7-2.3) 12/12/18 15:11 Urine Creatinine 214.6 mg/dL (0.1-20.0) H 12/12/18 10:55 Urine Sodium 49 mmol/L 12/12/18 10:55 Urine Total Protein 118 mg/dL (5-11.8) H 12/12/18 10:55 Medications & Allergies - Medications Allergies/Adverse Reactions: Allergies No Known Allergies Allergy (Verified 12/11/18 10:55) Home Medications: Home Medications Medication Instructions Recorded Confirmed Last Taken Type No Known Home Medications [No 12/11/18 12/11/18 Unknown History Reported Home Medications] Active Medications: Generic Name Dose Route Start Last Admin Trade Name Freq PRN Reason Stop Dose Admin Acetaminophen 650 mg 12/12/18 01:24 Tylenol PO Q4H PRN Pain MILD(1-3)/Fever >100.5/TUCKER Amlodipine Besylate 5 mg 12/12/18 01:30 12/13/18 11:25 Norvasc PO 5 mg QDAY@0800 [facility] Administration Carvedilol 12.5 mg 12/13/18 11:12 Coreg PO BID [facility] Heparin Sodium (Porcine) 5,000 unit 12/12/18 02:00 12/13/18 11:26 Heparin SUB-Q 5,000 unit Q12HR [facility] Administration Hydromorphone HCl 0.5 mg 12/12/18 01:24 Dilaudid IV Q3H PRN Pain , Severe (7-10) Losartan Potassium 50 mg 12/14/18 10:00 Cozaar PO QDAY [facility] Nitroglycerin 0.5 inch 12/12/18 00:00 12/13/18 05:38 Nitro-Bid 2% TP 0.5 inch QIDNTG [facility] Administration Protocol Ondansetron HCl 4 mg 12/12/18 01:24 Zofran IV Q8H PRN Nausea And Vomiting Oxycodone/Acetaminophen 1 tab 12/12/18 01:24 Percocet 5/325 PO Q6H PRN Pain, Moderate (4-6) Sodium Chloride 10 ml 12/12/18 10:00 12/12/18 22:05 Sodium Chloride Flush Syringe 10 Ml IV 10 ml BID [facility] Administration Sodium Chloride 10 ml 12/12/18 01:24 Sodium Chloride Flush Syringe 10 Ml IV PRN PRN LINE FLUSH Spironolactone 25 mg 12/13/18 13:00 Aldactone PO QDAY [facility]
[2018-12-13] MEDS ORDERED: ALDACTONE PO SCH (13:00)
--- NOTE | 2018-12-13 14:35 | Progress Note ---
Assessment and Plan Assessment and plan: Acute CHF Echo done to determine EF, report pending lasix iv bid cardiology following OBIE,worse Nephrology following Renal US Repeat BMP in am hypertension Monitor BP Elevated troponin hypokalamia,resolved Replace and recheck Full code status. History Interval history: Shortness of breath, improved Difficulty lying flat Hospitalist Physical - Physical exam Narrative exam: Gen: Not in acute distress, lying in bed HEENT: Normocephalic, atraumatic Neck: supple, no JVD Heart: S1 and S2 reg, no murmurs, rubs or gallop Lungs: Clear, no crackles Abd: soft, non tender, non distended, normal BS Ext: No edema, no clubbing, no cyanosis, Neuro: AAO x 3, no focal signs, moves all ext Psych:Normal mood - Constitutional Vitals: Temp Pulse Resp BP Pulse Ox 97.9 F 86 20 131/98 99 12/13/18 13:15 12/13/18 13:15 12/13/18 13:15 12/13/18 13:15 12/13/18 13:15 General appearance: Present: no acute distress Results - Labs CBC & Chem 7: 12/11/18 13:37 12/13/18 04:40 Labs: Laboratory Last Values WBC 5.0 K/mm3 (4.5-11.0) 12/11/18 13:37 RBC 4.20 M/mm3 (3.65-5.03) 12/11/18 13:37 Hgb 12.9 gm/dl (11.8-15.2) 12/11/18 13:37 Hct 38.4 % (35.5-45.6) 12/11/18 13:37 MCV 92 fl (84-94) 12/11/18 13:37 MCH 31 pg (28-32) 12/11/18 13:37 MCHC 34 % (32-34) 12/11/18 13:37 RDW 14.5 % (13.2-15.2) 12/11/18 13:37 Plt Count 179 K/mm3 (140-440) 12/11/18 13:37 Lymph % (Auto) 26.2 % (13.4-35.0) 12/11/18 13:37 [place] % (Auto) 5.8 % (0.0-7.3) 12/11/18 13:37 Eos % (Auto) 1.1 % (0.0-4.3) 12/11/18 13:37 Baso % (Auto) 0.8 % (0.0-1.8) 12/11/18 13:37 Lymph # 1.3 K/mm3 (1.2-5.4) 12/11/18 13:37 [place] # 0.3 K/mm3 (0.0-0.8) 12/11/18 13:37 Eos # 0.1 K/mm3 (0.0-0.4) 12/11/18 13:37 Baso # 0.0 K/mm3 (0.0-0.1) 12/11/18 13:37 Seg Neutrophils % 66.1 % (40.0-70.0) 12/11/18 13:37 Seg Neutrophils # 3.3 K/mm3 (1.8-7.7) 12/11/18 13:37 D-Dimer 624.94 ng/mlDDU (0-234) H 12/11/18 13:37 Sodium 141 mmol/L (137-145) 12/13/18 04:40 Potassium 3.2 mmol/L (3.6-5.0) L 12/13/18 04:40 Chloride 102.7 mmol/L (98-107) 12/13/18 04:40 Carbon Dioxide 24 mmol/L (22-30) 12/13/18 04:40 Anion Gap 18 mmol/L 12/13/18 04:40 BUN 27 mg/dL (9-20) H 12/13/18 04:40 Creatinine 2.4 mg/dL (0.8-1.5) H 12/13/18 04:40 Estimated GFR 37 ml/min 12/13/18 04:40 BUN/Creatinine Ratio 11 % 12/13/18 04:40 Glucose 95 mg/dL (75-100) 12/13/18 04:40 Hemoglobin A1c 5.1 % (4-6) 12/12/18 04:46 Calcium 8.5 mg/dL (8.4-10.2) 12/13/18 04:40 Magnesium 1.80 mg/dL (1.7-2.3) 12/12/18 15:11 Total Bilirubin 0.60 mg/dL (0.1-1.2) 12/12/18 04:46 AST 21 units/L (5-40) 12/12/18 04:46 ALT 32 units/L (7-56) 12/12/18 04:46 Alkaline Phosphatase 63 units/L (35-129) 12/12/18 04:46 Troponin T 0.021 ng/mL (0.00-0.029) 12/12/18 13:24 NT-Pro-B Natriuret Pep 04107 pg/mL (0-450) H 12/11/18 13:37 Total Protein 5.2 g/dL (6.3-8.2) L 12/12/18 04:46 Albumin 3.1 g/dL (3.9-5) L 12/12/18 04:46 Albumin/Globulin Ratio 1.5 % 12/12/18 04:46 Triglycerides 65 mg/dL (2-149) 12/12/18 04:46 Cholesterol 168 mg/dL (50-199) 12/12/18 04:46 LDL Cholesterol Direct 110 mg/dL (50-130) 12/12/18 04:46 HDL Cholesterol 64 mg/dL (40-59) H 12/12/18 04:46 Cholesterol/HDL Ratio 2.62 % 12/12/18 04:46 Urine Color Yellow (Yellow) 12/12/18 10:55 Urine Turbidity Clear (Clear) 12/12/18 10:55 Urine pH 6.0 (5.0-7.0) 12/12/18 10:55 Ur Specific [place] 1.012 (1.003-1.030) 12/12/18 10:55 Urine Protein 100 mg/dl mg/dL (Negative) 12/12/18 10:55 Urine Glucose (UA) Neg mg/dL (Negative) 12/12/18 10:55 Urine Ketones Neg mg/dL (Negative) 12/12/18 10:55 Urine Blood Neg (Negative) 12/12/18 10:55 Urine Nitrite Neg (Negative) 12/12/18 10:55 Urine Bilirubin Neg (Negative) 12/12/18 10:55 Urine Urobilinogen 2.0 mg/dL (<2.0) 12/12/18 10:55 Ur Leukocyte Esterase Neg (Negative) 12/12/18 10:55 Urine WBC (Auto) < 1.0 /HPF (0.0-6.0) 12/12/18 10:55 Urine RBC (Auto) 1.0 /HPF (0.0-6.0) 12/12/18 10:55 Urine Creatinine 214.6 mg/dL (0.1-20.0) H 12/12/18 10:55 Urine Sodium 49 mmol/L 12/12/18 10:55 Urine Total Protein 118 mg/dL (5-11.8) H 12/12/18 10:55 Active Medications - Current Medications Current Medications: Generic Name Dose Route Start Last Admin Trade Name Freq PRN Reason Stop Dose Admin Acetaminophen 650 mg 12/12/18 01:24 Tylenol PO Q4H PRN Pain MILD(1-3)/Fever >100.5/TUCKER Amlodipine Besylate 5 mg 12/12/18 01:30 12/13/18 11:25 Norvasc PO 5 mg QDAY@0800 [facility] Administration Carvedilol 12.5 mg 12/13/18 11:12 Coreg PO BID [facility] Heparin Sodium (Porcine) 5,000 unit 12/12/18 02:00 12/13/18 11:26 Heparin SUB-Q 5,000 unit Q12HR [facility] Administration Hydromorphone HCl 0.5 mg 12/12/18 01:24 Dilaudid IV Q3H PRN Pain , Severe (7-10) Losartan Potassium 50 mg 12/14/18 10:00 Cozaar PO QDAY [facility] Nitroglycerin 0.5 inch 12/12/18 00:00 12/13/18 05:38 Nitro-Bid 2% TP 0.5 inch QIDNTG [facility] Administration Protocol Ondansetron HCl 4 mg 12/12/18 01:24 Zofran IV Q8H PRN Nausea And Vomiting Oxycodone/Acetaminophen 1 tab 12/12/18 01:24 Percocet 5/325 PO Q6H PRN Pain, Moderate (4-6) Sodium Chloride 10 ml 12/12/18 10:00 12/12/18 22:05 Sodium Chloride Flush Syringe 10 Ml IV 10 ml BID [facility] Administration Sodium Chloride 10 ml 12/12/18 01:24 Sodium Chloride Flush Syringe 10 Ml IV PRN PRN LINE FLUSH Spironolactone 25 mg 12/13/18 13:00 Aldactone PO QDAY [facility]
[2018-12-13] MEDS: COREG PO SCH (21:15)
[2018-12-13] MEDS: SODIUM CHLORIDE FLUSH SYRINGE 10 ML IV SCH ×2 (21:18→21:19)
[2018-12-14] MEDS: NITRO-BID 2% TP SCH ×3 (05:26→12:28)
[2018-12-14 06:12] LABS: Calcium 8.5 mg/dL (8.4-10.2)
[2018-12-14] MEDS: SODIUM CHLORIDE FLUSH SYRINGE 10 ML IV SCH ×2 (07:40→12:19)
[2018-12-14] MEDS: COREG PO SCH ×2 (08:03→12:15)
[2018-12-14] MEDS: NORVASC PO SCH (09:36)
[2018-12-14] MEDS ORDERED: COZAAR PO SCH (10:00)
[2018-12-14] MEDS ORDERED: ALDACTONE PO SCH (10:00)
[2018-12-14] MEDS ORDERED: NORVASC PO SCH (10:00)
[2018-12-14] MEDS ORDERED: LEXISCAN IV ONE ×2 (10:10→11:08)
--- NOTE | 2018-12-14 11:16 | Progress Note ---
Assessment and Plan Assessment and plan: Acute CHF Echo EF 15-20% lasix held because rising Cr, euvolemic cardiology following For stress test today OBIE,worse Nephrology following Repeat BMP in am hypertension Monitor BP Elevated troponin hypokalamia,resolved Replace and recheck Full code status. History Interval history: Shortness of breath, improved Difficulty lying flat No chest pain currently Hospitalist Physical - Physical exam Narrative exam: Gen: Not in acute distress, lying in bed HEENT: Normocephalic, atraumatic Neck: supple, no JVD Heart: S1 and S2 reg, no murmurs, rubs or gallop Lungs: Clear, no crackles Abd: soft, non tender, non distended, normal BS Ext: No edema, no clubbing, no cyanosis, Neuro: AAO x 3, no focal signs, moves all ext Psych:Normal mood - Constitutional Vitals: Temp Pulse Resp BP Pulse Ox 97.5 F L 88 18 133/104 95 12/14/18 07:22 12/14/18 07:22 12/14/18 07:22 12/14/18 10:19 12/14/18 07:22 General appearance: Present: no acute distress Results - Labs CBC & Chem 7: 12/11/18 13:37 12/14/18 04:25 Labs: Laboratory Last Values WBC 5.0 K/mm3 (4.5-11.0) 12/11/18 13:37 RBC 4.20 M/mm3 (3.65-5.03) 12/11/18 13:37 Hgb 12.9 gm/dl (11.8-15.2) 12/11/18 13:37 Hct 38.4 % (35.5-45.6) 12/11/18 13:37 MCV 92 fl (84-94) 12/11/18 13:37 MCH 31 pg (28-32) 12/11/18 13:37 MCHC 34 % (32-34) 12/11/18 13:37 RDW 14.5 % (13.2-15.2) 12/11/18 13:37 Plt Count 179 K/mm3 (140-440) 12/11/18 13:37 Lymph % (Auto) 26.2 % (13.4-35.0) 12/11/18 13:37 Hernando % (Auto) 5.8 % (0.0-7.3) 12/11/18 13:37 Eos % (Auto) 1.1 % (0.0-4.3) 12/11/18 13:37 Baso % (Auto) 0.8 % (0.0-1.8) 12/11/18 13:37 Lymph # 1.3 K/mm3 (1.2-5.4) 12/11/18 13:37 Hernando # 0.3 K/mm3 (0.0-0.8) 12/11/18 13:37 Eos # 0.1 K/mm3 (0.0-0.4) 12/11/18 13:37 Baso # 0.0 K/mm3 (0.0-0.1) 12/11/18 13:37 Seg Neutrophils % 66.1 % (40.0-70.0) 12/11/18 13:37 Seg Neutrophils # 3.3 K/mm3 (1.8-7.7) 12/11/18 13:37 D-Dimer 624.94 ng/mlDDU (0-234) H 12/11/18 13:37 Sodium 141 mmol/L (137-145) 12/14/18 04:25 Potassium 3.1 mmol/L (3.6-5.0) L 12/14/18 04:25 Chloride 101.6 mmol/L (98-107) 12/14/18 04:25 Carbon Dioxide 25 mmol/L (22-30) 12/14/18 04:25 Anion Gap 18 mmol/L 12/14/18 04:25 BUN 30 mg/dL (9-20) H 12/14/18 04:25 Creatinine 2.6 mg/dL (0.8-1.5) H 12/14/18 04:25 Estimated GFR 34 ml/min 12/14/18 04:25 BUN/Creatinine Ratio 12 % 12/14/18 04:25 Glucose 88 mg/dL (75-100) 12/14/18 04:25 Hemoglobin A1c 5.1 % (4-6) 12/12/18 04:46 Calcium 8.5 mg/dL (8.4-10.2) 12/14/18 04:25 Magnesium 1.80 mg/dL (1.7-2.3) 12/12/18 15:11 Total Bilirubin 0.60 mg/dL (0.1-1.2) 12/12/18 04:46 AST 21 units/L (5-40) 12/12/18 04:46 ALT 32 units/L (7-56) 12/12/18 04:46 Alkaline Phosphatase 63 units/L (35-129) 12/12/18 04:46 Troponin T 0.021 ng/mL (0.00-0.029) 12/12/18 13:24 NT-Pro-B Natriuret Pep 18370 pg/mL (0-450) H 12/11/18 13:37 Total Protein 5.2 g/dL (6.3-8.2) L 12/12/18 04:46 Albumin 3.1 g/dL (3.9-5) L 12/12/18 04:46 Albumin/Globulin Ratio 1.5 % 12/12/18 04:46 Triglycerides 65 mg/dL (2-149) 12/12/18 04:46 Cholesterol 168 mg/dL (50-199) 12/12/18 04:46 LDL Cholesterol Direct 110 mg/dL (50-130) 12/12/18 04:46 HDL Cholesterol 64 mg/dL (40-59) H 12/12/18 04:46 Cholesterol/HDL Ratio 2.62 % 12/12/18 04:46 Urine Color Yellow (Yellow) 12/12/18 10:55 Urine Turbidity Clear (Clear) 12/12/18 10:55 Urine pH 6.0 (5.0-7.0) 12/12/18 10:55 Ur Specific [employer] 1.012 (1.003-1.030) 12/12/18 10:55 Urine Protein 100 mg/dl mg/dL (Negative) 12/12/18 10:55 Urine Glucose (UA) Neg mg/dL (Negative) 12/12/18 10:55 Urine Ketones Neg mg/dL (Negative) 12/12/18 10:55 Urine Blood Neg (Negative) 12/12/18 10:55 Urine Nitrite Neg (Negative) 12/12/18 10:55 Urine Bilirubin Neg (Negative) 12/12/18 10:55 Urine Urobilinogen 2.0 mg/dL (<2.0) 12/12/18 10:55 Ur Leukocyte Esterase Neg (Negative) 12/12/18 10:55 Urine WBC (Auto) < 1.0 /HPF (0.0-6.0) 12/12/18 10:55 Urine RBC (Auto) 1.0 /HPF (0.0-6.0) 12/12/18 10:55 Urine Creatinine 214.6 mg/dL (0.1-20.0) H 12/12/18 10:55 Urine Sodium 49 mmol/L 12/12/18 10:55 Urine Total Protein 118 mg/dL (5-11.8) H 12/12/18 10:55 Active Medications - Current Medications Current Medications: Generic Name Dose Route Start Last Admin Trade Name Freq PRN Reason Stop Dose Admin Acetaminophen 650 mg 12/12/18 01:24 Tylenol PO Q4H PRN Pain MILD(1-3)/Fever >100.5/TUCKER Amlodipine Besylate 10 mg 12/14/18 10:00 Norvasc PO QDAY@0800 [facility] Carvedilol 12.5 mg 12/13/18 11:12 12/13/18 21:15 Coreg PO 12.5 mg BID [facility] Administration Heparin Sodium (Porcine) 5,000 unit 12/12/18 02:00 12/13/18 21:15 Heparin SUB-Q 5,000 unit Q12HR [facility] Administration Hydromorphone HCl 0.5 mg 12/12/18 01:24 Dilaudid IV Q3H PRN Pain , Severe (7-10) Losartan Potassium 50 mg 12/14/18 10:00 Cozaar PO QDAY [facility] Nitroglycerin 0.5 inch 12/12/18 00:00 12/14/18 07:40 Nitro-Bid 2% TP Not Given QIDNTG [facility] Protocol Ondansetron HCl 4 mg 12/12/18 01:24 Zofran IV Q8H PRN Nausea And Vomiting Oxycodone/Acetaminophen 1 tab 12/12/18 01:24 Percocet 5/325 PO Q6H PRN Pain, Moderate (4-6) Potassium Chloride 40 meq 12/14/18 09:00 K-Dur PO 12/14/18 15:01 Q6H [facility] Sodium Chloride 10 ml 12/12/18 10:00 12/14/18 07:40 Sodium Chloride Flush Syringe 10 Ml IV Not Given BID [facility] Sodium Chloride 10 ml 12/12/18 01:24 Sodium Chloride Flush Syringe 10 Ml IV PRN PRN LINE FLUSH Spironolactone 25 mg 12/14/18 10:00 Aldactone PO BID [facility]
--- NOTE | 2018-12-14 12:08 | Progress Note ---
Assessment and Plan - Patient Problems (1) Acute renal failure Current Visit: Yes Status: Acute Qualifiers: Acute renal failure type: unspecified Qualified Code(s): N17.9 - Acute kidney failure, unspecified Plan to address problem: 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 underlying CKD secondary to hypertensive nephrosclerosis likely. renal US showed b/l echogenic kidneys consistent with CKD. avoid nephrotoxins, NSAIDs, IV contrast. Recommend to cont ARB w/ losartan and spironolactone given preliminary review of echo shows EF ~20-25%. awaiting stress test today (2) Hypertensive emergency Current Visit: Yes Status: Acute Plan to address problem: Pt is euvolemic agree with d/c IV lasix. cont BP control with Losartan, amlodipine, carvedilol, added spironolactone (3) Hypokalemia Current Visit: Yes Status: Acute Plan to address problem: K Supplementation with KDur, cont losartan, increased spironolactone to 25mg po bid Subjective Date of service: 12/14/18 Principal diagnosis: ARF; HTN; HF Interval history: Pt awake, alert, in no acute respiratory distress. Objective - Vital Signs Vital signs: Vital Signs - 12hr 12/14/18 12/14/18 12/14/18 04:28 07:22 09:51 Temperature 98.1 F 97.5 F L Pulse Rate 84 88 Respiratory 12 18 Rate Blood Pressure 146/111 154/116 142/111 O2 Sat by Pulse 99 95 Oximetry 12/14/18 12/14/18 12/14/18 10:10 10:11 10:12 Temperature Pulse Rate Respiratory Rate Blood Pressure 150/110 152/111 140/91 O2 Sat by Pulse Oximetry 12/14/18 12/14/18 12/14/18 10:13 10:15 10:16 Temperature Pulse Rate Respiratory Rate Blood Pressure 145/106 142/100 152/107 O2 Sat by Pulse Oximetry 12/14/18 12/14/18 12/14/18 10:17 10:18 10:19 Temperature Pulse Rate Respiratory Rate Blood Pressure 151/109 143/108 133/104 O2 Sat by Pulse Oximetry - General Appearance General appearance: well-developed, well-nourished, appears stated age EENT: ATNC, PERRL, mucous membranes moist Neck: no JVD Respiratory: Present: Clear to Ascultation Cardiology: regular, S1S2 Gastrointestinal: normoactive bowel sounds Integumentary: no rash, other (no edema ) Neurologic: no focal deficit, alert and oriented x3, strength 5/5, CN 3-12 intact Psychiatric: mood/affect appropriate, cooperative - Lab 12/11/18 13:37 12/14/18 04:25 Most recent lab results Calcium 8.5 mg/dL (8.4-10.2) 12/14/18 04:25 Magnesium 1.80 mg/dL (1.7-2.3) 12/12/18 15:11 Urine Creatinine 214.6 mg/dL (0.1-20.0) H 12/12/18 10:55 Urine Sodium 49 mmol/L 12/12/18 10:55 Urine Total Protein 118 mg/dL (5-11.8) H 12/12/18 10:55 Medications & Allergies - Medications Allergies/Adverse Reactions: Allergies No Known Allergies Allergy (Verified 12/11/18 10:55) Home Medications: Home Medications Medication Instructions Recorded Confirmed Last Taken Type No Known Home Medications [No 12/11/18 12/11/18 Unknown History Reported Home Medications] Active Medications: Generic Name Dose Route Start Last Admin Trade Name Freq PRN Reason Stop Dose Admin Acetaminophen 650 mg 12/12/18 01:24 Tylenol PO Q4H PRN Pain MILD(1-3)/Fever >100.5/TUCKER Amlodipine Besylate 10 mg 12/14/18 10:00 Norvasc PO QDAY@0800 [facility] Carvedilol 12.5 mg 12/13/18 11:12 12/13/18 21:15 Coreg PO 12.5 mg BID [facility] Administration Heparin Sodium (Porcine) 5,000 unit 12/12/18 02:00 12/13/18 21:15 Heparin SUB-Q 5,000 unit Q12HR [facility] Administration Hydromorphone HCl 0.5 mg 12/12/18 01:24 Dilaudid IV Q3H PRN Pain , Severe (7-10) Losartan Potassium 50 mg 12/14/18 10:00 Cozaar PO QDAY [facility] Nitroglycerin 0.5 inch 12/12/18 00:00 12/14/18 07:40 Nitro-Bid 2% TP Not Given QIDNTG [facility] Protocol Ondansetron HCl 4 mg 04/24/19 01:24 Zofran IV Q8H PRN Nausea And Vomiting Oxycodone/Acetaminophen 1 tab 12/12/18 01:24 Percocet 5/325 PO Q6H PRN Pain, Moderate (4-6) Potassium Chloride 40 meq 12/14/18 09:00 K-Dur PO 12/14/18 15:01 Q6H [facility] Sodium Chloride 10 ml 12/12/18 10:00 12/14/18 07:40 Sodium Chloride Flush Syringe 10 Ml IV Not Given BID [facility] Sodium Chloride 10 ml 12/12/18 01:24 Sodium Chloride Flush Syringe 10 Ml IV PRN PRN LINE FLUSH Spironolactone 25 mg 12/14/18 10:00 Aldactone PO BID [facility]
[2018-12-14] MEDS: K-DUR PO SCH ×2 (12:13→16:05)
[2018-12-14] MEDS: HEPARIN SUB-Q SCH (12:16)
--- NOTE | 2018-12-14 13:02 | Progress Note ---
Assessment and Plan Acute heart failure with reduced EF Echo reviewed - EF 15-20%, mod LVH, mod dilated LV, pseudonormalization. Pt appears euvolemic. Cardiomyopathy Echo reviewed - EF 15-20%, mod LVH, mod dilated LV, pseudonormalization. Presumably nonischemic. S/p lexiscan MPI stress test today which was negative for ischemia. Cont Coreg, losartan, aldactone. OBIE on CKD Nephrology following. Uncontrolled HTN Improving. Cont Coreg, losartan, aldactone, norvasc. Minimally elevated troponin Pt denies chest pain. ECG with no acute ischemic changes. Currently nonspecific. S/p lexiscan MPI stress test today which was negative for ischemia. Hypokalemia Replete lytes PRN. Elevated DDimer V/Q scan negative for PE. Tobacco use Cessation encouraged. Medical noncompliance Currently stable cardiac status. Pt may discharge home from cardiology standpoint on current cardiac regimen. Follow up in our [place] office with Dr. Ruffin on 12/19/2018 @ 11:15AM. The patient has been seen in conjunction with Dr. Ruffin who agrees with the assessment and plan of care. Subjective Date of service: 12/14/18 Principal diagnosis: ARF; HTN; HF Interval history: pt resting up in chair, no current complaints, states he is feeling better. s/p stress test this AM. Objective Last Vital Signs Temp 97.5 F L 12/14/18 07:22 Pulse 86 12/14/18 12:46 Resp 18 12/14/18 07:22 BP 133/104 12/14/18 12:46 Pulse Ox 95 12/14/18 07:22 - Physical Examination General: No Apparent Distress HEENT: Positive: PERRL, Normocephaly, Mucus Membranes Moist Neck: Positive: neck supple, trachea midline Cardiac: Positive: Reg Rate and Rhythm, S1/S2 Lungs: Positive: Decreased Breath Sounds Neuro: Positive: Grossly Intact Abdomen: Positive: Soft. Negative: Tender Skin: Negative: Rash, Wound Musculoskeletal: No Pain Extremities: Absent: edema - Labs and Meds Comprehensive Metabolic Panel 12/14/18 Range/Units 04:25 Sodium 141 (137-145) mmol/L Potassium 3.1 L (3.6-5.0) mmol/L Chloride 101.6 (98-107) mmol/L Carbon Dioxide 25 (22-30) mmol/L BUN 30 H (9-20) mg/dL Creatinine 2.6 H (0.8-1.5) mg/dL Glucose 88 (75-100) mg/dL Calcium 8.5 (8.4-10.2) mg/dL - Imaging and Cardiology EKG: report reviewed, image reviewed Echo: pending - EKG Sinus rhythms and dysrhythmias: sinus rhythm Chamber hypertrophy or enlargement: left ventricular hypertro Repolarization changes or abnormalities: repolarization abn secondary to ventri cular hypertrophy
--- NOTE | 2018-12-14 15:24 | Discharge Summary ---
Providers - Providers Date of Admission: 12/12/18 11:52 Date of discharge: 12/14/18 Attending physician: YENI LACY 12/12/18 10:11 Consult to Physician [CONS] Routine Comment: Consulting Provider: AMI ROBERT Physician Instructions: Reason For Exam: Elevated Troponin, poss CHF 12/12/18 10:12 Consult to Physician [CONS] Routine Comment: Consulting Provider: DEAN MACE Physician Instructions: Reason For Exam: OBIE Primary care physician: LYN LUCERO Hospitalization Condition: Fair Hospital course: Patient is 38 yo with hypertension, medical non compliance. He presented with shortness of breath. CXR revealed pulmonary edema. He was diagnosed with acute respiratory failure due to acute congestive heart failure. He was also diagnosed with acute kidney injury secondary to ATN. Patient was started on Lasix IV and admitted. Cardiology and Nephrology were consulted and he was evaluated. Echocardiogram revealed ejection fraction 15-20%. He was put on beta nydia and Losartan. He improved after few days. Cardiology recommended patient may be discharged home and follow as an outpatient. He was subsequently discharged on 12/13/2018 to follow with cardiology as outpatient. Total time spent on discharge, 33 minutes Disposition: DC-01 TO HOME OR SELFCARE - Discharge Diagnoses (1) Acute systolic (congestive) heart failure Status: Acute (2) ATN (acute tubular necrosis) Status: Acute (3) OBIE (acute kidney injury) Status: Acute (4) Hypertensive urgency Status: Acute Core Measure Documentation - Palliative Care Palliative Care/ Comfort Measures: Not Applicable - Core Measures Any of the following diagnoses?: heart failure - Heart Failure Discharge Requirements STEVE/ARB for LVSD if EF <40%: Yes Beta nydia at discharge: Yes Exam - Constitutional Vitals: Temp Pulse Resp BP Pulse Ox 97.5 F L 86 18 133/104 95 12/14/18 07:22 12/14/18 12:46 12/14/18 07:22 12/14/18 12:46 12/14/18 07:22 Plan Activity: advance as tolerated Diet: low fat, low cholesterol, low salt, renal Additional Instructions: 1.Follow up with PCP or [facility] in 1 week. 2.Follow up with Dr. Mirna Dodson, nephrology in 1 week. 3.Follow up with Dr. Ana Carrillo on 12/19/18 Follow up with: LYN LUCERO MD [Primary Care Provider] - 3-5 Days HEIDI CARRILLO MD [Staff Physician] - 7 Days (Follow up in our [place] office with Dr. Carrillo on 12/19/2018 @ 11:15AM. ) Forms: Work/School Release Form Prescriptions: Spironolactone [Aldactone] 25 mg PO BID #60 tablet Carvedilol [Coreg] 12.5 mg PO BID #30 tablet Losartan [Cozaar] 50 mg PO QDAY #30 tablet amLODIPine [Norvasc] 10 mg PO DAILY #30 tab
[2018-12-14 16:03] VITALS: BP 131/95
--- NOTE | 2018-12-14 20:48 | Treadmill Report ---
NUCLEAR PERFUSION STUDY REASON FOR STUDY: Cardiomyopathy and chest pain. IMAGING PROTOCOL: Single isotope used. The patient received 10 mCi of Technetium 99m Tetrofosmin for resting image and 28 mCi of Technetium 99m Tetrofosmin for stress imaging. The imaging for the whole procedure was completed 30-90 minutes following the initial injection of Technetium 99m Tetrofosmin. The SPECT imaging in the 180 degree arc was performed in the right anterior oblique projection. Computerized reconstruction of the images was performed for analysis. IMAGING RESULTS: Cavity is dilated on both stress and rest with distribution normal in the anterior, inferior, septal, and apical regions. Gated SPECT, EF of 10% with severe global hypokinesis. The patient infused Lexiscan with no EKG changes. SUMMARY: 1. Negative Lexiscan EKG. 2. No significant stress induced ischemia. Dilated LV cavity seen both stress and rest with normal myocardial perfusion noted, but severe LV dysfunction. This is consistent with nonischemic cardiomyopathy. JOB# [id number] HALI/MAIDA
== END 2018-12-14 16:45 | disposition home or self-care (01) | DRG 682 ==
LOC: ED 10:09 → 4A 11:52 → OBSVTOIN 12-12 11:52
PROVIDERS: ADMIT Internal Medicine; ATTEND Internal Medicine
DX: N17.0 Acute kidney failure with tubular necrosis (principal); I50.21 Acute systolic (congestive) heart failure; I16.1 Hypertensive emergency; I13.0 Hypertensive heart and chronic kidney disease with heart failure and stage 1 through stage 4 chronic kidney disease, or unspecified chronic kidney disease; I42.9 Cardiomyopathy, unspecified; F17.200 Nicotine dependence, unspecified, uncomplicated; N18.9 Chronic kidney disease, unspecified; E87.6 Hypokalemia; Z82.49 Family history of ischemic heart disease and other diseases of the circulatory system; Z91.19 Patient's noncompliance with other medical treatment and regimen; Z71.6 Tobacco abuse counseling
CPT/HCPCS: 36415; 71046; 76770; 78452; 78582; 80048; 80053; 80061; 81001; 82565; 82570; 83036; 83735; 83880; 84156; 84300; 84484; 85025; 85379; 93005; 93010; 93017; 93306; 94640; 96365; 96366; 96375; 99406; G0378; A9502; A9540; A9558; J0360; J1644; J1940; J2785; J3480